=== PATIENT | male | born 1940 | race Caucasian/White ===

== ENCOUNTER → 2017-12-27 | Outpatient (CLI) | payer MEDICARE, BC ==
[~2017-12-27] MED LIST: ACCUPRIL; ACCUPRIL40 MG PO; ACETAMINOPHEN325 M1 PO; ARIXTRA SQ; ASPIRIN EC325 M1 PO; ASPIRIN325 PO; AUGMENTIN 875-1 EACH PO; BENEFIBER1 G1 PO; CLARITIN10 MG PO; FLONASE; LIPITOR10 MG PO; LIPITOR20 MG PO; LOVASTAT20; MAXZIDE 75-501 EACH PO; MIRALAX255 GM PO; NEURONTIN 300300 M1 PO; NORCO 5-325 TA1 EACH PO; OXYCONTIN10 M1 PO; OXYIR5 MG PO; PERCOCET 5-3251 EACH PO; STOOL SOFTENER1 EAC2 PO; TESSALON PERLE100 MG PO; TRIAMTERENE-HC1 EAC3; TRIAMTERENE-HC1 EAC3 PO; XARELTO10 MG PO
--- NOTE | 2017-12-27 12:36 | 2DMMODE ---
[place] [address] 2 D/M-MODE ECHOCARDIOGRAM Name: TEOFILO BELCHER Room: [facility]#: [id number] Admission: 12/27/17 Attend Phys: Charlotte Aragon Discharge: Date of : 36 Date of Service: 12/27/17 1235 Report #: [id number] THIS REPORT FOR: //name// APPROVED REPORT Study performed: 12/27/2017 07:56:24 EXAM: Comprehensive 2D, Doppler, and color-flow Echocardiogram BSA: 2.02 HR: 55 bpm BP: 150/72 mmHg Other Information Study Quality: Fair Indications Congestive Heart Failure Cardiomyopathy 2D Dimensions LVEF(%): 77.40 (>50%) IVSd: 14.46 (7-11mm) LVOT Diam: 27.72 (18-24mm) LVDd: 57.80 mm PWd: 12.40 (7-11mm) Ascending Ao: 27.72 (22-36mm) LVDs: 30.80 (25-40mm) Aortic Root: 40.81 mm Mora's LVEF: 77.40 % Volumes Left Atrial Volume (Systole) LA ESV Index: 52.60 mL/m2 Aortic Valve AoV Peak Jamin.: 1.31 m/s AO Peak Gr.: 6.88 mmHg LVOT Max P.96 mmHg AO Mean Gr.: 3.68 mmHg LVOT Mean P.51 mmHg LVOT Max V: 0.86 m/s AO V2 VTI: 28.91 cm LVOT Mean V: 0.57 m/s ELENA (VTI): 4.28 cm2 LVOT V1 VTI: 20.53 cm Mitral Valve E/A Ratio: 1.14 MV Decel. Time: 192.69 ms MV E Max Jamin.: 0.74 m/[place] [address] 2 D/M-MODE ECHOCARDIOGRAM Name: TEOFILO BELCHER Room: [facility]#: [id number] Admission: 12/27/17 Attend Phys: Charlotte Aragon Discharge: Date of : 36 Date of Service: 12/27/17 1235 Report #: [id number] MV PHT: 55.88 ms MVA (PHT): 3.94 cm2 TDI E/Lateral E': 6.73 E/Medial E': 14.80 Medial E' Jamin.: 0.05 m/s Lateral E' Jamin.: 0.11 m/s Pulmonary Valve PV Peak Jamin.: 0.82 m/s PV Peak Gr.: 2.71 mmHg Left Ventricle Left ventricle is moderately dilated. There is severe diffuse hypokinesis of left ventricular wall motion There is normal left ventricular wall thickness. Left ventricular ejection fraction is severely decreased. LVEF is 25%. The left ventricular diastolic function is normal. Right Ventricle The right ventricle is normal size. The right ventricular systolic function is normal. Atria Left atrium is moderately dilated. Right atrium is mildly dilated. Aortic Valve Mild aortic valve sclerosis. Trace aortic regurgitation. There is no aortic valvular stenosis. Mitral Valve There is mitral annular calcification. Mild to moderate mitral regurgitation. No evidence of mitral valve stenosis. Tricuspid Valve The tricuspid valve is normal in structure. There is no tricuspid valve regurgitation noted. Pulmonic Valve The pulmonary valve is normal in structure. Trace pulmonic regurgitation. Great Vessels The aortic root is normal in size. IVC is dilated and collapses <50% [place] [address] 2 D/M-MODE ECHOCARDIOGRAM Name: BELCHERTEOFILO W [id number] Admission: 12/27/17 Attend Phys: Charlotte Aragon Discharge: Date of : 36 Date of Service: 12/27/17 1235 Report #: [id number] Pericardium There is no pericardial effusion. <Conclusion> Left ventricle is moderately dilated. There is normal left ventricular wall thickness. Left ventricular ejection fraction is severely decreased. LVEF is 25%. The right ventricle is normal size. Left atrium is moderately dilated. Right atrium is mildly dilated. Mild aortic valve sclerosis. Trace aortic regurgitation. There is no aortic valvular stenosis. There is mitral annular calcification. Mild to moderate mitral regurgitation. No evidence of mitral valve stenosis. The tricuspid valve is normal in structure. IVC is dilated and collapses <50% with inspiration. There is no pericardial effusion. There is severe diffuse hypokinesis of left ventricular wall motion <ELECTRONICALLY SIGNED> By: Jeffery eBll MD, [facility] 12/27/17 1235 1235 1235 Jeffery Bell MD, FACC /INF
== END ==
LOC: M.CRD 07:24
DX: I34.0 Nonrheumatic mitral (valve) insufficiency (principal); I34.8 Other nonrheumatic mitral valve disorders; I35.8 Other nonrheumatic aortic valve disorders

== ENCOUNTER → 2018-04-05 | Outpatient (CLI) | payer MEDICARE, BC | LOC: M.RAD 09:31 | DX: M16.0 Bilateral primary osteoarthritis of hip (principal); M53.3 Sacrococcygeal disorders, not elsewhere classified; I10 Essential (primary) hypertension; E78.5 Hyperlipidemia, unspecified ==

== ENCOUNTER → 2019-06-15 | Outpatient (CLI) | payer MEDICARE, BC | LOC: M.RAD 12:20 | DX: R06.00 Dyspnea, unspecified (principal); R05 Cough; M47.819 Spondylosis without myelopathy or radiculopathy, site unspecified ==

== ENCOUNTER → 2019-09-23 | Outpatient (CLI) | payer MEDICARE, BC | LOC: M.RAD 10:57 | DX: R05 Cough (principal); I50.9 Heart failure, unspecified; R53.81 Other malaise ==

== ENCOUNTER → 2019-10-02 | Outpatient (CLI) | payer MEDICARE, BC | LOC: M.RAD 11:09 | DX: R06.02 Shortness of breath (principal); R05 Cough ==